=== PATIENT | male | born 1995 | race Caucasian/White ===

== ENCOUNTER 2016-05-13 19:02 | Inpatient (IN) | payer MEDICAID, OTHER ==
[~2016-05-13] VITALS: Ht 182.9 cm; Wt 63.0 kg
[2016-05-13] MEDS ORDERED: ONDANSETRON (ODT) 4 MG TAB ODT STA (19:08)
[2016-05-13] MEDS ORDERED: IBUPROFEN 800 MG TAB PO ONE (19:30)
[2016-05-13 19:58] VITALS: Ht 182.9 cm; Wt 63.0 kg
[2016-05-13] MEDS ORDERED: SOD CHLORIDE 0.9% 1,000 ML IV STA (20:12)
[2016-05-13] MEDS ORDERED: ONDANSETRON 4 MG INJ IV STA (20:12)
[2016-05-13] MEDS ORDERED: DIPHENOXYLATE/ATROPINE TAB PO ONE (20:30)
[2016-05-13 20:48] LABS: ADD SCAN DIFF NO
[2016-05-13 21:11] LABS: ABNORMAL IP MESSAGE 1; HEMATOCRIT 47.4 % (42.0-52.0); HEMOGLOBIN 16.1 g/dl (14.0-18.0); MEAN CORPUSCULAR HEMOGLOBIN 30.4 pg (29.0-33.0); MEAN CORPUSCULAR VOLUME 89.6 fl (82.0-101.0); MEAN PLATELET VOLUME 12.1 fl (7.4-10.4); PLATELET COUNT 254 10^3/UL (140-415); RED BLOOD COUNT 5.29 10^6/ul (4.70-6.10); RED CELL DISTRIBUTION WIDTH 12.6 % (11.5-14.5); WHITE BLOOD COUNT 24.5 10^3/ul (4.8-10.8)
[2016-05-13 21:57] LABS: LYMPHOCYTES # 1.7 10^3/ul (0.8-2.9); MONOCYTE # 0.7 10^3/ul (0.3-0.9); NEUTROPHIL # 19.6 10^3/ul (1.6-7.5)
[2016-05-13 22:27] LABS: ALBUMIN 3.8 g/dl (3.3-4.9)
[2016-05-13 22:28] LABS: POTASSIUM 3.3 mmol/L (3.5-5.1)
[2016-05-13 22:30] LABS: ALBUMIN/GLOBULIN RATIO 1.31; BILIRUBIN,INDIRECT 0.5 mg/dl (0-1.1); BILIRUBIN,TOTAL 0.5 mg/dl (0.2-1.3); CREATININE 0.59 mg/dl (0.61-1.24); TOTAL PROTEIN 6.7 g/dl (6.1-8.1)
[2016-05-13 22:31] LABS: CALCIUM 9.3 mg/dl (8.4-10.2)
[2016-05-13] MEDS ORDERED: IBUP-1542 PO (23:06)
[2016-05-13] MEDS ORDERED: ONDA4TAB14 PO (23:06)
--- NOTE | 2016-05-13 23:08 | ERD ---
ER Documentation Chief Complaint Date/Time DATE: 05/13/16 TIME: 23:07 Chief Complaint OVERDOSE ON HEROINE AND METH, ABD PAIN WITH DIARRHEA HPI Patient is a 21-year-old male with no medical problems who presents with abdominal pain and diarrhea. He used heroin and methamphetamines 4 hours ago. His abdominal pain started 2 hours ago. He was at [facility] and 911 was called. He was brought in by ambulance. He felt better after having a bowel movement. His Accu-Chek was 99 by paramedics. Upon review of old medical records this is the patient's first visit to the ER. The pain is diffuse and constant. He has had no treatment for the pain as of yet. ROS All systems reviewed and are negative except as per history of present illness. Medications Home Meds Active Scripts Ondansetron (Ondansetron Odt) 4 Mg Tab.rapdis, 4 MG PO Q6H Y for NAUSEA AND/OR VOMITING, #30 TAB Prov:OMAR WINCHESTER MD 05/13/16 Ibuprofen* (Motrin*) 600 Mg Tab, 600 MG PO Q6H Y for PAIN AND OR ELEVATED TEMP, #30 TAB Prov:OMAR WINCHESTER MD 05/13/16 Allergies Allergies: Coded Allergies: No Known Allergy (Unverified , 05/13/16) PMhx/Soc Medical and Surgical Hx: pt denies Medical Hx, pt denies Surgical Hx History of Surgery: No Anesthesia Reaction: No Hx Neurological Disorder: No Hx Respiratory Disorders: No Hx Cardiac Disorders: No Hx Psychiatric Problems: Yes (DRUG ABUSE) Hx Miscellaneous Medical Probl: Yes (DRUG ABUSE) Hx Alcohol Use: Yes (OOC) Hx Substance Use: Yes (HEROINE, METH, COCAINE, MJ) Hx Tobacco Use: Yes Smoking Status: Current every day smoker FmHx Family History: No diabetes Physical Exam Vitals Vital Signs Date Time Temp Pulse Resp B/P Pulse Ox O2 Delivery O2 Flow Rate FiO2 05/13/16 20:30 98.2 108 12 116/7 100 Room Air 05/13/16 19:58 98.2 99 12 129/82 94 Physical Exam Const: Mild distress secondary to pain Head: Atraumatic Eyes: Normal Conjunctiva ENT: Normal External Ears, Nose and Mouth. Neck: Full range of motion..~ No meningismus. Resp: Clear to auscultation bilaterally Cardio: Regular rate and rhythm, no murmurs Abd: Soft, diffuse tenderness to palpation without rebound or guarding Skin: No petechiae or rashes Back: No midline or flank tenderness Ext: No cyanosis, or edema Neur: Awake but intoxicated Result Diagram: 05/13/16202905/13/162202 Results 24 hrs Laboratory Tests Test 05/13/16 20:30 05/13/16 22:03 Band Neutrophils % 10.0% Basophils # 10^3/ul Basophils % % Eosinophils # 10^3/ul Eosinophils % % Hematocrit 47.4% Hemoglobin 16.1g/dl Lymphocytes # 1.710^3/ul Lymphocytes % 7.0% Mean Corpuscular Hemoglobin 30.4pg Mean Corpuscular Hemoglobin Concent 34.0g/dl Mean Corpuscular Volume 89.6fl Mean Platelet Volume 12.1fl Monocytes # 0.710^3/ul Monocytes % 3.0% Neutrophils # 19.610^3/ul Neutrophils % 80.0% Nucleated Red Blood Cells # 10^3/ul Nucleated Red Blood Cells % /100WBC Platelet Count 44756^3/UL Red Blood Count 5.2910^6/ul Red Cell Distribution Width 12.6% White Blood Count 24.510^3/ul Alanine Aminotransferase (ALT/SGPT) 37IU/L Albumin 3.8g/dl Albumin/Globulin Ratio 1.31 Alkaline Phosphatase 73IU/L Anion Gap 16 Aspartate Amino Transf (AST/SGOT) 27IU/L Blood Urea Nitrogen 12mg/dl Calcium Level 9.3mg/dl Carbon Dioxide Level 29mmol/L Chloride Level 99mmol/L Creatinine 0.59mg/dl Direct Bilirubin 0.00mg/dl Globulin 2.90g/dl Glucose Level 118mg/dl Indirect Bilirubin 0.5mg/dl Lipase 69U/L Potassium Level 3.3mmol/L Sodium Level 141mmol/L Total Bilirubin 0.5mg/dl Total Protein 6.7g/dl Current Medications Medications (Trade) Dose Ordered Sig/Harry Route PRN Reason Start Time Stop Time Status Last Admin Dose Admin Ibuprofen (Motrin) 800 mg ONCE ONCE PO 05/13/16 19:30 05/13/16 19:31 DC 05/13/16 20:32 Ondansetron HCl 4 mg 4 mg ONCE STAT ODT 05/13/16 19:08 05/13/16 19:09 DC 05/13/16 20:32 Sodium Chloride (NS) 1,000 ml @ 1,000 mls/hr Q1H STAT IV 05/13/16 20:12 05/13/16 21:11 DC 05/13/16 20:37 Diphenoxylate HCl/ Atropine (Lomotil) 2 tab ONCE ONCE PO 05/13/16 20:30 05/13/16 20:31 DC 05/13/16 20:32 Ondansetron HCl (Zofran Inj) 4 mg ONCE STAT IV 05/13/16 20:12 05/13/16 20:14 DC 05/13/16 20:32 Procedures/MDM CT scan of the abdomen and pelvis is pending at this time. Patient is a 21-year-old male with illicit drug use with methamphetamine and heroin who presents with abdominal pain. The patient had laboratory studies done which showed an elevated white blood cell count of 24.5. Therefore CT scan of the abdomen and pelvis was ordered to look for intra-abdominal serious etiology such as appendicitis or bowel obstruction. The patient was given ibuprofen and Zofran. He was given 1 L of normal saline for fluid resuscitation. The patient will be signed out the oncoming physician to follow- up on the results of the CT scan. If the CT scan is negative I believe outpatient management would be appropriate. Departure Diagnosis: Primary Impression: Leukocytosis Leukocytosis type: unspecified Qualified Code: D72.829 - Leukocytosis, unspecified type Additional Impressions: Acute drug overdose Encounter type: initial encounter Injury intent: accidental or unintentional Qualified Code: T50.901A - Acute drug overdose, accidental or unintentional, initial encounter Abdominal pain Abdominal location: generalized Qualified Code: R10.84 - Generalized abdominal pain Condition: Fair Patient Instructions: Abdominal Pain, Drug Abuse Referrals: COMMUNITY CLINICS YOU HAVE RECEIVED A MEDICAL SCREENING EXAM AND THE RESULTS INDICATE THAT YOU DO NOT HAVE A CONDITION THAT REQUIRES URGENT TREATMENT IN THE EMERGENCY DEPARTMENT. FURTHER EVALUATION AND TREATMENT OF YOUR CONDITION CAN WAIT UNTIL YOU ARE SEEN IN YOUR DOCTORS OFFICE WITHIN THE NEXT 1-2 DAYS. IT IS YOUR RESPONSIBILITY TO MAKE AN APPOINTMENT FOR FOLOW-UP CARE. IF YOU HAVE A PRIMARY DOCTOR --you should call your primary doctor and schedule an appointment IF YOU DO NOT HAVE A PRIMARY DOCTOR YOU CAN CALL OUR PHYSICIAN REFERRAL HOTLINE AT IF YOU CAN NOT AFFORD TO SEE A PHYSICIAN YOU CAN CHOSE FROM THE FOLLOWING [facility] [address] [facility] [address] [facility] [facility] [address] [facility] [address] [facility]. [facility] [address] [facility]. [facility] [address] Additional Instructions: FOLLOW UP WITH YOUR PRIMARY CARE PHYSICIAN TOMORROW.Return to this facility if you are not improving as expected. OMAR WINCHESTER MD May 13, 2016 23:08
[2016-05-13] MEDS ORDERED: POTASSIUM CHLORIDE (SR) 20 MEQ TAB PO STA (23:28)
[2016-05-13] MEDS ORDERED: SOD CHLORIDE 0.9% 1,000 ML IV ONE (23:30)
--- NOTE | 2016-05-13 23:53 | RADRPT ---
PROCEDURE: CT Abdomen and pelvis without contrast. CLINICAL INDICATION: Abdominal pain. TECHNIQUE: CT scan of the abdomen and pelvis was performed on a multi-detector high-resolution CT scanner. Contiguous axial images were obtained from the lung bases to the ischial tuberosities wit hout intravenous contrast. Coronal and sagittal reformatted images were also obtained. Images were reviewed on the PACS workstation. One or more of the following dose reduction techniques were used: - Automated exposure control. - Adjustment of the mA and/or kV according to patient size. - Use of iterative reconstruction technique. Exam CTD/vol = 7.70 mGy. Total exam DLP = 413.20 mGy-cm. COMPARISON: None. FINDINGS: Evaluation of the lung bases demonstrates mild scattered air space opacities bilaterally. Abdomen: The liver is normal in size. There is no focal mass or dilatation of the biliary tree. T he gallbladder is not distended. The spleen, pancreas and bilateral adrenal glands are within hamzah l limits. Bilateral kidneys are normal in size with no contour deforming mass identified. There is no radiopaque renal or ureteral calculus identified. There is no hydronephrosis or hydroureter. T here is no retroperitoneal adenopathy. The abdominal aorta is of normal caliber. The stomach is moderately distended. There is mild thickening of the colon with mild adjacent stran ding. There is no bowel obstruction or free air. A normal appendix is identified. There is no div erticulosis or diverticulitis. There is no ascites. Pelvis: The bladder is unremarkable. The prostate and seminal vesicles are within normal limits. There is no significant pelvic adenopathy or free fluid. Evaluation of the osseous structures demonstrates no suspicious lytic or blastic lesion. IMPRESSION: Mild thickening of the colon represents nonspecific infectious/inflammatory colitis. Moderately distended stomach. Mild scattered air space opacities bilaterally. .Patrick Davies MD, MD Date Time Electronically viewed and signed by .Patrick Davies MD, MD on 05/13/2016 23:53 .T/
[2016-05-14] VITALS (7 sets, daily range): BP systolic 84–106; BP diastolic 49–68; PULSE 77–97; RESP 15–18; TEMP 98.2
[2016-05-14] LABS: URINE BLOOD (Dip) POC Negative (NEGATIVE)
[2016-05-14] MEDS ORDERED: metroNIDAZOLE 500 MG/NS (PMX) 100 ML IVPB ONE
[2016-05-14] MEDS ORDERED: CIPROFLOXACIN 400MG/D5W 200 ML IVPB ONE
[2016-05-14 00:01] LABS: ADD UMIC YES; URINE BILIRUBIN (Dip) 2+ (NEGATIVE); URINE BLOOD (Dip) NEGATIVE (NEGATIVE); URINE COLOR AMBER (YELLOW); URINE GLUCOSE (Dip) NEGATIVE (NEGATIVE); URINE KETONES (Dip) 15 (NEGATIVE); URINE LEUKOCYTE ESTERASE (Dip) TRACE (NEGATIVE); URINE NITRITE (Dip) POSITIVE (NEGATIVE); URINE TOTAL PROTEIN (Dip) 1+ (NEGATIVE); URINE UROBILINOGEN (Dip) 2.0 E.U./dL (0.1-1.0)
[2016-05-14 00:25] LABS: ICTOTEST NEGATIVE (NEGATIVE)
[2016-05-14 00:27] LABS: SQUAMOUS EPITHELIAL CELL,UR FEW; URINE RBCS NONE SEEN /HPF (0)
[2016-05-14 00:28] LABS: BACTERIA,URINE FEW
--- NOTE | 2016-05-14 00:31 | EN ---
Date/Time of Note Date/Time of Note DATE: 05/14/16 TIME: 00:26 ER Progress Note History of present illness: The patient is a 21-year-old male, was initially evaluated by Dr. Winchester who signed the patient out to nc, pending on the abdominal and pelvic CT scan. He presented to the ER with acute abdominal pain , vomiting, diarrhea and of sudden abuse. He was treated with Motrin 800 mg p.o., Zofran ODT and Zofran 4 mg IV, 1 L normal saline, Imodium 2 mg p.o. Const: No acute distress. Dehydrated Head: Atraumatic. Eyes: Normal Conjunctiva. ENT: Normal External Ears, Nose and Mouth. Neck: Full range of motion. No meningismus. Resp: Clear to auscultation bilaterally. Cardio: Regular rate and rhythm, no murmurs. Abd: Soft, non distended, normal bowel sounds, diffuse abdominal tenderness, no rigidity, rebound, CVA tenderness Skin: No petechiae or rashes. Back: No midline or flank tenderness. Ext: No cyanosis, or edema. Neur: Awake and alert. No focal deficit Psych: Limited due to his condition Diagnostic study I have reviewed the labs. Urinalysis, CK and portable chest x-ray were added by [place] [id number] Rad[address] Main Line: [phone] DIAGNOSTIC IMAGING REPORT Patient: HILARIO MCGARRY : 1995 Age: 21 Sex: M MR #: [id number] DOS: 05/13/16 2329 Ordering MD: CYNTHIA MASCORRO MD Location: E/R Room/Bed: PROCEDURE: XR Chest. CLINICAL INDICATION: Cough TECHNIQUE: Single frontal view of the chest was obtained COMPARISON: None FINDINGS: The heart and mediastinum are within normal limits. The lungs are clear. There is no pleural effusion or pneumothorax. IMPRESSION: No acute disease. RPTAT: UU Physician Essie Date Time Electronically viewed and signed by Physician Essie on 05/14/2016 00:57 RS/ CC: CYNTHIA MASCORRO MD [place] [id number] Radiology Main Line: [phone] DIAGNOSTIC IMAGING REPORT Patient: HILARIO MCGARRY : 1995 Age: 21 Sex: M MR #: [id number] DOS: 05/13/16 2239 Ordering MD: OMAR WINCHESTER MD Location: E/R Room/Bed: PROCEDURE: CT Abdomen and pelvis without contrast. CLINICAL INDICATION: Abdominal pain. TECHNIQUE: CT scan of the abdomen and pelvis was performed on a multi- detector high-resolution CT scanner. Contiguous axial images were obtained from the lung bases to the ischial tuberosities without intravenous contrast. Coronal and sagittal reformatted images were also obtained. Images were reviewed on the PACS workstation. One or more of the following dose reduction techniques were used: - Automated exposure control. - Adjustment of the mA and/or kV according to patient size. - Use of iterative reconstruction technique. Exam CTD/vol = 7.70 mGy. Total exam DLP = 413.20 mGy-cm. COMPARISON: None. FINDINGS: Evaluation of the lung bases demonstrates mild scattered air space opacities bilaterally. Abdomen: The liver is normal in size. There is no focal mass or dilatation of the biliary tree. The gallbladder is not distended. The spleen, pancreas and bilateral adrenal glands are within normal limits. Bilateral kidneys are normal in size with no contour deforming mass identified. There is no radiopaque renal or ureteral calculus identified. There is no hydronephrosis or hydroureter. There is no retroperitoneal adenopathy. The abdominal aorta is of normal caliber. The stomach is moderately distended. There is mild thickening of the colon with mild adjacent stranding. There is no bowel obstruction or free air. A normal appendix is identified. There is no diverticulosis or diverticulitis. There is no ascites. Pelvis: The bladder is unremarkable. The prostate and seminal vesicles are within normal limits. There is no significant pelvic adenopathy or free fluid. Evaluation of the osseous structures demonstrates no suspicious lytic or blastic lesion. IMPRESSION: Mild thickening of the colon represents nonspecific infectious/inflammatory colitis. Moderately distended stomach. Mild scattered air space opacities bilaterally. .Patrick Davies MD, MD Date Time Electronically viewed and signed by .Patrick Davies MD, MD on 05/13/2016 23:53 .T/ CC: OMAR WINCHESTER MD MEDICAL MAKING DECISION: The patient is a 21-year-old male, presenting with acute colitis, acute cystitis, acute dehydration, substance abuse. He was treated with additional 1 L normal saline, potassium chloride 40 mEq p.o., Cipro IV, Flagyl IV. The differential diagnoses considered include but are not limited to cholelithiasis, cholecystitis, cystitis, pancreatitis, hepatitis, gastritis, peptic ulcer disease, gastric ulcer, appendicitis, diverticulitis, cholangitis, choledocholithiasis, partial small bowel obstruction. Diagnostic impression: #1 acute colitis #2 acute cystitis #3 acute dehydration #4 substance abuse Disposition: I discussed the findings with the patient. I discussed the patient with the on- call hospitalist Dr. Canchola who was made aware of the lab, the treatment, the patient condition. The patient is admitted to medical surgery bed at 1:20 AM CYNTHIA MASCORRO MD May 14, 2016 00:31
--- NOTE | 2016-05-14 00:58 | RADRPT ---
PROCEDURE: XR Chest. CLINICAL INDICATION: Cough TECHNIQUE: Single frontal view of the chest was obtained COMPARISON: None FINDINGS: The heart and mediastinum are within normal limits. The lungs are clear. There is no pleural effusion or pneumothorax. IMPRESSION: No acute disease. RPTAT: UU Physician Essie Date Time Electronically viewed and signed by Lloyd Cam Physician on 05/14/2016 00:57 RS/
[2016-05-14] MEDS: SOD CHLORIDE 0.9% 1,000 ML IV SCH ×6 (03:26→21:43)
[2016-05-14] MEDS: metroNIDAZOLE 500 MG/NS (PMX) 100 ML IVPB SCH ×3 (05:34→21:41)
[2016-05-14 07:46] LABS: ADD SCAN DIFF NO
[2016-05-14 07:56] LABS: BASOPHIL # 0.1 10^3/ul (0.0-0.1); BASOPHILS % 0.4 % (0.0-2.0); EOSINOPHILS # 0.4 10^3/ul (0.0-0.5); EOSINOPHILS % 2.6 % (0.0-7.0); HEMOGLOBIN 11.1 g/dl (14.0-18.0); LYMPHOCYTES # 2.3 10^3/ul (0.8-2.9); LYMPHOCYTES % 16.9 % (15.0-51.0); MEAN CORPUSCULAR HEMOGLOBIN 29.6 pg (29.0-33.0); MEAN CORPUSCULAR HGB CONC 32.6 g/dl (32.0-37.0); MEAN CORPUSCULAR VOLUME 90.7 fl (82.0-101.0); MONOCYTE # 1.1 10^3/ul (0.3-0.9); MONOCYTES % 8.2 % (0.0-11.0); NEUTROPHIL # 9.8 10^3/ul (1.6-7.5); NEUTROPHILS % 71.5 % (39.0-77.0); PLATELET COUNT 206 10^3/UL (140-415); RED BLOOD COUNT 3.75 10^6/ul (4.70-6.10); RED CELL DISTRIBUTION WIDTH 12.6 % (11.5-14.5); WHITE BLOOD COUNT 13.7 10^3/ul (4.8-10.8)
[2016-05-14] MEDS ORDERED: SOD CHLORIDE 0.9% 1,000 ML IV ONE (08:00)
[2016-05-14 08:04] LABS: ALBUMIN 2.7 g/dl (3.3-4.9)
[2016-05-14 08:05] LABS: POTASSIUM 3.9 mmol/L (3.5-5.1)
[2016-05-14 08:06] LABS: CREATININE 0.65 mg/dl (0.61-1.24)
[2016-05-14 08:07] LABS: ALBUMIN/GLOBULIN RATIO 1.17; BILIRUBIN,INDIRECT 0.5 mg/dl (0-1.1); BILIRUBIN,TOTAL 0.5 mg/dl (0.2-1.3)
[2016-05-14 08:08] LABS: CALCIUM 8.4 mg/dl (8.4-10.2)
[2016-05-14] MEDS: CIPROFLOXACIN 400MG/D5W 200 ML IVPB SCH ×2 (08:49→20:42)
[2016-05-14 10:36] LABS: CANNABINOIDS Positive (NEGATIVE)
[2016-05-14 10:47] LABS: BARBITURATES Negative (NEGATIVE); BENZODIAZEPINES Negative (NEGATIVE); COCAINE Negative (NEGATIVE); OPIATES Positive (NEGATIVE)
--- NOTE | 2016-05-14 11:58 | HP ---
Date/Time of Note Date/Time of Note DATE: 05/14/16 TIME: 11:51 Assessment/Plan Lines/Catheters IV [facility]from [facility] Peripheral IV Urinary Cath still in place: No Assessment/Plan Assessment/Plan IMPRESSION 1. Colitis 2. Abd pain, N/V and diarrhea: 2/2 above 3. Sepsis 2/2 colitis 4. Substance abuse, including meth and IV heroine PLAN IV abx f/u blood culture and stool culture, including c-diff SW to help with drug addiction HPI/ROS Admit Date/Time Admit Date/Time May 14, 2016 at 01:24 Hx of Present Illness This is a 21 yo male with hx of substance abuse including meth and IV heroine who presented to the ER with acute abdominal pain, vomiting and loose diarrhea. In ER CT can showed Mild thickening of the colon represents nonspecific infectious/inflammatory colitis, Moderately distended stomach and Mild scattered air space opacities bilaterally. He is currently sleepy, but arousable and is answering questions appropriately. Reportdly, when he came to ER, he was covered with feces. . PMH/Family/Social Social History Smoking Status: Current every day smoker Exam/Review of Systems Vital Signs Vitals Vital Signs Date Time Temp Pulse Resp B/P Pulse Ox O2 Delivery O2 Flow Rate FiO2 05/14/16 09:36 97 99/63 05/14/16 07:59 98.8 18 98 05/14/16 03:20 Room Air Intake and Output 05/13/16 05/13/16 05/14/16 15:00 23:00 07:00 Intake Total 350 ml Output Total 550 ml Balance -200 ml Labs Result Diagram: 05/14/16 0740 05/14/16 0740 Medications Medications Current Medications Sodium Chloride 1,000 ml @ 150 mls/hr Q6H40M IV Last administered on 05/14/16 07:51; Admin Dose 150 MLS/HR; Start 05/14/16 at 03:30 Ciprofloxacin/ Dextrose 200 ml @ 200 mls/hr Q12 IVPB Last administered on 08:49; Admin Dose 200 MLS/HR; Start 05/14/16 at 09:00 Metronidazole (Flagyl 500 Mg (Pmx)) 100 ml @ 100 mls/hr Q8 IVPB Last administered on 05/14/16 05:34; Admin Dose 100 MLS/HR; Start 05/14/16 at 06:00 ORQUIDEA CARTER MD May 14, 2016 11:58
[2016-05-14] MEDS: HYDROCODONE/APAP (5/325) TAB PO PRN ×2 (16:22→20:42)
[2016-05-14] MEDS ORDERED: ONDANSETRON 4 MG INJ IV PRN (16:30)
[2016-05-15] MEDS: HYDROCODONE/APAP (5/325) TAB PO PRN ×2 (02:50→08:57)
[2016-05-15] MEDS: metroNIDAZOLE 500 MG/NS (PMX) 100 ML IVPB SCH ×2 (05:40→14:00)
[2016-05-15] MEDS: SOD CHLORIDE 0.9% 1,000 ML IV SCH ×2 (05:41→13:33)
[2016-05-15 06:20] LABS: ADD SCAN DIFF NO
[2016-05-15 06:23] LABS: BASOPHIL # 0.1 10^3/ul (0.0-0.1); BASOPHILS % 0.7 % (0.0-2.0); EOSINOPHILS # 0.4 10^3/ul (0.0-0.5); HEMOGLOBIN 11.1 g/dl (14.0-18.0); LYMPHOCYTES # 2.3 10^3/ul (0.8-2.9); LYMPHOCYTES % 27.8 % (15.0-51.0); MEAN CORPUSCULAR HEMOGLOBIN 29.4 pg (29.0-33.0); MEAN CORPUSCULAR HGB CONC 32.6 g/dl (32.0-37.0); MEAN CORPUSCULAR VOLUME 90.2 fl (82.0-101.0); MEAN PLATELET VOLUME 12.7 fl (7.4-10.4); MONOCYTE # 0.6 10^3/ul (0.3-0.9); MONOCYTES % 7.3 % (0.0-11.0); NEUTROPHIL # 4.8 10^3/ul (1.6-7.5); PLATELET COUNT 181 10^3/UL (140-415); RED BLOOD COUNT 3.77 10^6/ul (4.70-6.10); RED CELL DISTRIBUTION WIDTH 12.6 % (11.5-14.5); WHITE BLOOD COUNT 8.2 10^3/ul (4.8-10.8)
[2016-05-15 07:35] VITALS: BP 104/62; RESP 20
[2016-05-15 07:42] LABS: POTASSIUM 3.7 mmol/L (3.5-5.1)
[2016-05-15 07:45] LABS: CREATININE 0.64 mg/dl (0.61-1.24); PHOSPHORUS 3.1 mg/dl (2.5-4.9)
[2016-05-15 07:46] LABS: CALCIUM 8.1 mg/dl (8.4-10.2); MAGNESIUM 1.6 mg/dl (1.7-2.5)
[2016-05-15] MEDS: CIPROFLOXACIN 400MG/D5W 200 ML IVPB SCH (08:52)
[2016-05-15] MEDS ORDERED: MAGNESIUM SULFATE 3 GM in SOD CHLORIDE 0.9% 100 ML IVPB ONE (10:30)
--- NOTE | 2016-05-15 12:41 | PDOCDIS ---
Discharge Instructions CONDITION Patient Condition: Good HOME CARE INSTRUCTIONS: Diet Instructions: Regular ACTIVITY: Activity Restrictions: No Restrictions FOLLOW UP/APPOINTMENTS Appointments F/U WITH YOUR PCP IN 1-2 WEEKS JONN HECTOR May 15, 2016 12:41
--- NOTE | 2016-05-15 19:17 | DS ---
DATE OF ADMISSION: 05/14/2016 DATE OF DISCHARGE: 05/15/2016 DISCHARGE DIAGNOSES: 1. Colitis, resolved. 2. Sepsis secondary to colitis, resolved. 3. Substance abuse including meth and heroin. Advised to stop using. HOSPITAL COURSE: The patient is a 21-year-old male with a history of substance abuse with heroin an d meth abuse. The patient presents with colitis with abdominal pain, nausea, vomiting, diarrhea, se psis was from colitis. The patient was put on some antibiotics with Cipro and Flagyl. Abdominal CT did show colitis and a mildly distended stomach. The patient did have an elevated white count of 2 4.5 on arrival. On the day of discharge it came down to 8.2 and hence within normal limits. Patien t's clinical symptoms of colitis had also resolved. Patient's U-tox did show opioids as well as amp hetamines and cannabinoids. The patient was advised that he needs to refrain from using any further drugs. The patient's parents were to pick him up. He is felt to be stable for discharge. On day of discharge, vitals, labs and physical exam were stable. He had no acute complaints. Questions we re answered. CONDITION ON DISCHARGE: Stable. DISPOSITION: To home. MEDICATIONS: Please continue home medications. No new medications were prescribed. FOLLOWUP: The patient is to follow up a PCP in 1 to 2 weeks. Greater than 30 minutes was spent coordinating discharge of this patient. Dictated By: JONN HECTOR MD BS/NTS Conf#: [id number] DID#: [id number]
== END 2016-05-15 15:05 | disposition home or self-care (01) | DRG 872 ==
LOC: E/R 19:02 → PP2 05-14 01:24
PROVIDERS: ADMIT Internal Medicine; ATTEND Internal Medicine
DX: A41.9 Sepsis, unspecified organism (principal); F15.10 Other stimulant abuse, uncomplicated; K52.9 Noninfective gastroenteritis and colitis, unspecified; N30.90 Cystitis, unspecified without hematuria; E86.0 Dehydration; F11.90 Opioid use, unspecified, uncomplicated
CPT/HCPCS: 36415; 71010; 74176; 80048; 80053; 80307; 81001; 81003; 82550; 82553; 83690; 83735; 84100; 84484; 85025; 96374; 96375; J0744; J2405; J3475; J7030